=== PATIENT | female | born 1945 | race Caucasian/White ===

== ENCOUNTER 2016-10-15 13:38 | Day surgery (SDC) | payer MEDICARE ==
[2016-10-15] VITALS (7 sets, daily range): BP systolic 140–161; BP diastolic 51–76; PULSE 14–58; RESP 12–18; O2SAT 99–100
[~2016-10-15] VITALS: Ht 170.2 cm; Wt 61.0 kg
[~2016-10-15 13:38] MED LIST: CALC-975 PO; CeFAZolin Inj 2 GM in IV Premix 1 EACH IV ONE; HYDR25TA4 PO; OMEP20CA11 PO; ZLP5T PO
[2016-10-15] MEDS ORDERED: Ondansetron 2 mg/mL 2 mL Inj ONE (13:39)
[2016-10-15] MEDS ORDERED: Propofol 10,000 mCg/mL 20 mL Inj ONE (13:39)
[2016-10-15] MEDS ORDERED: Dexamethasone 4 mg/mL Inj ONE (13:39)
[2016-10-15] MEDS ORDERED: EPHEDrine/NS 5 mg/mL 5 mL Syringe ONE (13:39)
[2016-10-15] MEDS: Lactated Ringer's 1,000 ML IV SCH ×2 (13:59→15:00)
--- NOTE | 2016-10-15 15:17 | PCM.HPANE ---
Patient Data Surgeon Admitting Provider: Attending Provider:Geetha William MD Primary Care Physician:Angelika Li MD Other Provider:Zoila Acuñaingham Anesthesia Reason for Visit Gastric Cancer Ht/WT & BMI Height (Feet): 5 Height (Inches): 7 Weight (Kilograms): 61 Body Mass Index 21.00 Allergies Coded Allergies: Sulfa (Sulfonamide Antibiotics) (Verified Allergy, Mild, HIVES, 10/15/16) Past Anesthesia History Anesthesia History: Denies:: Abnormal Airway, Anesthesia Reactions, Difficult Intubation, Fam Anesthesia Reaction, Fam Malignant Hypertherm, Malignant Hyperthermia Diabetes History Hx Diabetes?: No MRSA MRSA: No Medications Hypertension Medication: Yes (HCTZ) Home Meds Incl Beta Yahir: No Reported Medications Zolpidem (Ambien)5 Mg Tablet5 Mg PO HS PRN For Insomnia Ref 0 10/08/16 Omeprazole 20 Mg Capsule.dr20 Mg PO BID Ref 0 10/08/16 Calcium Carbonate/Vitamin D3 (Calcium 600 + Vit D3 Caplet)600 Mg-800 Tablet1 Each PO daily-bid 10/08/16 Hydrochlorothiazide 25 Mg Jomlig30 Mg PO DAILY Ref 0 10/08/16 Discontinued Reported Medications Meloxicam-Expunged Drug, Do Not Renew! 7.5 Mg Zcmpmf36 Mg PO DAILY 02/20/13 Enalapril/HCTZ-Expunged Drug, Do Not Renew! (Vaseretic 79-24-Mkxfedzk Drug, Do Not Renew!)1 Ea Tab1 Ea PO 02/20/13 History History of ENT Problems?: No HEENT History: Positive for:: Cataracts (removed lt eye 2 months ago) Denies:: Abnormal Airway Difficult Intubation Dysphagia Glaucoma Hearing Problem Sinus Problem TMJ Denture Type: None Teeth Condition: Within Normal Limits Hx of Heart Problems?: Yes Cardiovascular History: Positive for:: Heart Murmur Hypertension Denies:: AICD Atrial Fibrillation Chest Pain Irregular Heartbeat Pacemaker Peripheral Vascular Rheumatic Fever Thrombophlebitis Valvular Heart Disease Other History/Comments No CP; Greater than 4 mets Hx of Respiratory Problem?: No Respiratory History: Denies:: Asthma COPD Cough Dyspnea Emphysema Hemoptysis Oxygen Administration Pneumonia Pulmonary Embolism Tuberculosis Use of C-PAP Machine (CPAP recommended patient can not tolerate) Use of Inhalers / NEBS Other History/Comment ross - does not use CPAP Hx Neurologic Problems?: No Neurological History: Denies:: Alzheimer's Disease CVA Dementia Dizziness Headaches Seizures Hx of GI Problems?: Yes (GERD - well controlled with PPI) Hx of Problems?: No Genitourinary History: Positive for:: Urinary Tract Infection Denies:: HX of Hemodialysis Kidney Stones HX of Peritoneal Dialysis: No Female Hx: Denies:: Endometriosis Pelvic Inflammatory Problems with Breasts? Skin History: Denies:: History Skin Disorders? Pressure Ulcers Hx Musculoskeletal Problems?: No Musculoskeletal History: Denies:: Back Injury Degenerative Joint Fibromyalgia Joint Replacement Musculoskeletal Trauma Myasthenia Gravis Osteoarthritis Rheumatoid Arthritis Systemic Lupus Hx of Psycho/Social Problems?: No Psycho Social History: Denies:: Anxiety Bipolar Disorder Hx Depression Hx Surgeries?: Yes (Laparoscopy) Hx Any Other Health Problems?: Yes Other History: Positive for:: Cancer (Stomach) Hospitalization (2017 Laparoscopy [facility]) Denies:: Endocrine Disease Thyroid Disease History Blood Transfusions: Positive for:: Accept Blood Products? Denies:: Blood Transfusions Hx Diabetes: No Hx Alcohol Use: Yes (2-3 glasses a week of wine)Hx Substance Use: NoHave You Smoked inLast 12 mo: No Stop/Bang S-Snoring: Do You Snore Loudly: No T-Tired: feel tired, fatigued: No O-Obsered: Observed not breath: Yes P-Blood Pressure: treated: Yes B- Body Mass Index > 35 kg/m2: No A- Age over 50: Yes N- Neck Large Circumference: No G- Gender Male: No ROSS Total Score: 3 Risk Assessment Category Category 1A: Patient has history of documented sleep apnea, and HAS NOT received any narcotic, sedative or anesthesia administration during this stay. Category 1B: Patient has history of documented sleep apnea, and HAS received any narcotic , sedative or anesthesia administration during this stay Category 2: Patient has SUSPECTED Obstructive Sleep Apnea, and HAS received any narcotic , sedative or anesthesia administration during this stay. Category 3: Patient has SUSPECTED Obstructive Sleep Apnea and HAS NOT received narcotic, sedative or anesthesia administration during this stay. Category 4: Outpatient in Procedural Areas with known sleep apnea or who screen positive for High Risk via the STOP/BANG questionnaire. Exam Exam Vital Signs Vital Signs Date Time Temp Pulse Resp B/P Pulse Ox O2 Delivery O2 Flow Rate FiO2 10/15/16 13:59 36 16 16 144/51 99 Room Air General Appearance: Alert, Oriented X3 HEENT/AIRWAY: MP 2, Neck Movement (FROM) Lungs: Clear to Auscultation, Clear to Percussion Heart: Exam Unremarkable, Regular Rate/Rhythm Meds/Labs/Diagnostics Admission Meds Current Medications Lactated Ringer's (Lr) 1,000 ml @ 120 mls/hr Q8H20M IV Last administered on t 13:59; Start 10/15/16 at 05:00; Stop 10/15/16 at 13:19; Status DC Plan Impression Patient chart reviewed, patient interviewed and anesthestic plan with risks, benefits, and alternatives discussed, and informed consent obtained. ASA Physical Status: ASA3 Severe Disease Anesthetic Plan: GA Bene/Risks/Altern/Consents: Yes HP Complete Prior to Induction: Yes Abhinav Keane MD Oct 15, 2016 14:45
[2016-10-15] MEDS ORDERED: fentaNYL-PF 50 mCg/mL 2 mL Inj IVPUSH PRN (15:25)
[2016-10-15] MEDS ORDERED: MetoCLOpramide 5 mg/mL 2 mL Inj IVPUSH PRN (15:25)
[2016-10-15] MEDS ORDERED: EPHEDrine Sulfate 50 mg/mL Inj IVPUSH PRN (15:25)
[2016-10-15] MEDS ORDERED: Phenylephrine 10,000 mCg/mL Inj IVPUSH PRN (15:25)
[2016-10-15] MEDS ORDERED: HYDROmorphone 1 mg/mL Inj IVPUSH PRN (15:25)
[2016-10-15] MEDS ORDERED: Ondansetron 2 mg/mL 2 mL Inj IVPUSH PRN (15:25)
[2016-10-15] MEDS ORDERED: Atropine 0.4 mg/mL Inj IVPUSH PRN (15:25)
[2016-10-15] MEDS ORDERED: Labetalol 5 mg/mL 4 mL Inj IV PRN (15:25)
[2016-10-15] MEDS ORDERED: Lactated Ringer's 1,000 ML IV SCH (15:25)
[2016-10-15] MEDS ORDERED: Lactated Ringer's 500 ML IV PRN (15:25)
[2016-10-15] MEDS ORDERED: Bupivacaine-MPF 0.25% 30 mL Inj INFILTRATE ONE (16:04)
--- NOTE | 2016-10-15 16:34 | PCM.SURGOP ---
Surgical Operative Report Date of Service: Oct 15, 2016 Pre Operative Diagnosis Metastatic gastric cancer Post Operative Diagnosis Metastatic gastric cancer Procedure: PowerPort placement, right internal jugular vein, with ultrasound guidance with interpretation; with fluoroscopic guidance with interpretation Surgeon and Director Non Profit: Surgeon: Geetha William MD Assistants: Gino Crawford MD R3; Sonal Jha, MS3 Indication for Procedure This is a 71-year-old woman who was diagnosed with gastric cancer. On diagnostic laparoscopy, she was found to have metastatic disease. She was scheduled for chemotherapy and therefore port placement was requested. Findings: The port tip was at the cavoatrial junction at the end of the procedure. The port aspirated and flushed easily. It was flushed with 10 mL of heparin solution, 100U/mL, at the end of the case. Procedure Details The patient was brought to the operating room and placed in supine position. General anesthesia with a LMA was smoothly induced. Antibiotics were infused. A warming blanket and SCDs were placed. The operative field was prepped and draped in sterile fashion. A pause was performed to confirm the correct patient , procedure, site, and side. The right internal jugular vein was identified with the ultrasound. Despite adequate visualization, on the first stick the blood flow is bright red and pulsatile. The needle was removed and pressure was held for 5 minutes. There is no sign of hematoma. The internal jugular vein was then accessed on the second stick, and a wire was threaded. Fluoroscopy confirmed the wires presence on the right side of the heart. The position of the tip of the wire at the cavoatrial junction was measured. A pocket was made in the tissue overlying the right pectoralis. The port was inserted and sewn into place with two interrupted Prolene stitches. It was then tunneled to the site of the wire using a small counter incision. The port catheter was then cut to the appropriate size as previously measured by the wire s position on fluoroscopy. Dilation was then performed under fluoroscopic guidance. The sheath was left in place and the catheter was inserted. The sheath was removed and the two sides were found to be completely intact. The tip of the port was found to be positioned at the cavoatrial junction on fluoroscopy. The catheter was not kinked on fluoroscopy. The port aspirated and flushed easily at the end of the case. It was infused with 10 mL of 100 units/mL heparin solution. The subcutaneous tissue overlying the port was closed with a 3-0 Vicryl stitch. The skin at the port site, the wire access site, and counter incision was closed with a 4-0 subcuticular Monocryl stitch. Marcaine 0.5% with epinephrine was injected in the skin overlying the port as well as the stick site. A sterile dressing was placed. The patient tolerated the procedure well, and was awakened from general anesthesia and taken to the postoperative care unit in good condition. Complications The first stick of the needle was arterial and presumed to be in the carotid artery; pressure was held and no hematoma was identified intraoperatively. Surgical Specimen Removed: No Specimen sent to Pathology: No Anesthetic Plan: GA Grafts, Implants: None Output, Estimated Blood Loss: 10 (ml) Blood Administration during iyer: No Geetha William MD Oct 15, 2016 16:34
--- NOTE | 2016-10-15 16:44 | PCM.DISURG ---
Surgical Discharge Instruction Date of Service Oct 15, 2016 Dates of Hospitalization Date of Hospital Admission Providers Admitting Physician: Primary Care Physician: Angelika Li MD Attending Physician: Geetha William MD Discharge Diagnosis Post Operative diagnosis Metastatic gastric cancer Diet Discharge Diet: No restrictions Activity Discharge Activity-General: No restrictions, Activity as pain allows, No driving while taking narcotic Dressing and Incisional Care Dressing Care: Allow Steri Stripes to fall off, Remove outer dressing after 24 hrs Hygiene: May shower after (24 hours) Additional Instructions Discharge Instructions Follow up with your oncologist. Call at any time with questions or concerns. Follow Up Plan Call your provider for: Fever, Chills, Wound redness, Discharge @ incision, pus discharge Doron Crawford MD Oct 15, 2016 16:44
--- NOTE | 2016-10-15 16:44 | PCM.ANEP1 ---
Post Anesthesia PACU Phase 1 Assessment Vital Signs Vital Signs Date Time Temp Pulse Resp B/P Pulse Ox O2 Delivery O2 Flow Rate FiO2 10/15/16 13:59 36 16 16 144/51 99 Room Air Anesthetic Administered: GA Level of Alertness: Awake, talking COOLEY's with Equal Strength: Yes Pain: No Nausea or Vomiting: No CV Function & Hydration Stable: Yes Airway Device: Oxygen Delivery: Room Air Lungs: Clear to Auscultation, Clear to Percussion PACU Phase 2 Assessment Complications: No Follow up Care: No Patient Instructions Provided: N/A Comments See anesth record for PACU VS. PACU VSS Abhinav Keane MD Oct 15, 2016 16:44
[2016-10-15] MEDS ORDERED: oxyCODONE-Acetamin 5-325 mg Tablet PO PRN (16:45)
--- NOTE | 2016-10-15 17:11 | DRSVH ---
PROCEDURE: X-RAY CHEST ONE VIEW, PORTABLE ([id number]) INDICATIONS: S/p RIJ port placement. R/o pneumothorax TECHNIQUE: One view of the chest was acquired. COMPARISON: None. FINDINGS: Surgical changes and devices: Right-sided port placement with tip overlying the atrial caval junction .. Lungs and pleura: No pleural effusions or pneumothorax. Lungs are clear. Mediastinum: Mediastinal contours appear normal. Heart size is normal. Bones and chest wall: No suspicious bony lesions. Overlying soft tissues appear unremarkable. IMPRESSION: Right-sided port placement with no apparent complication. Dictated by: Denis Wong M.D. on 10/15/2016 at 17:08 Approved by: Denis Wong M.D. on 10/15/2016 at 17:09
== END 2016-10-15 23:59 | disposition home or self-care (01) ==
LOC: SAS 13:38
PROVIDERS: ATTEND Surgery
DX: C16.1 Malignant neoplasm of fundus of stomach (principal); C16.0 Malignant neoplasm of cardia; I10 Essential (primary) hypertension; K21.9 Gastro-esophageal reflux disease without esophagitis; G47.00 Insomnia, unspecified; G47.30 Sleep apnea, unspecified; G25.81 Restless legs syndrome
CPT/HCPCS: 36561; 71010; 77001; C1788; J0690; J1100; J2405; J7120